=== PATIENT | female | born 1960 | race Two or more races ===

== ENCOUNTER 2020-03-08 10:00 | Inpatient (IN) | payer OTHER ==
[~2020-03-08] VITALS: Ht 154.9 cm; Wt 57.6 kg
[2020-03-08] MEDS ORDERED: NORVASC5 MG PO (12:09)
[2020-03-08] MEDS ORDERED: MONTELUKAST SOD10 MG PO (12:09)
[2020-03-08] MEDS ORDERED: ENALAPRIL MALEA20 MG PO (12:09)
[2020-03-08] MEDS ORDERED: HYDROCHLOROTHIA25 MG PO (12:10)
[2020-03-08] MEDS ORDERED: LIPITOR80 MG PO (12:10)
[2020-03-08] MEDS ORDERED: BREO ELLIPTA 21 EACH IH (12:10)
[2020-03-08] MEDS ORDERED: ZETIA10 MG PO (12:10)
== END 2020-03-18 17:59 | disposition home or self-care (01) | DRG 331 ==
LOC: O/R 03-15 06:38 → SURH 03-15 06:38 → OB/GYN 03-15 07:00 → SURH 03-15 13:31
PROVIDERS: ADMIT Colon & Rectal Surgery; ATTEND Colon & Rectal Surgery
PROC: 0DTN4ZZ Resection of Sigmoid Colon, Percutaneous Endoscopic Approach (ICD-10-PCS; principal; 2020-03-15 07:00)
DX: K57.32 Diverticulitis of large intestine without perforation or abscess without bleeding (principal); I10 Essential (primary) hypertension; Z20.828 Contact with and (suspected) exposure to other viral communicable diseases

== ENCOUNTER 2021-07-14 07:05 | Day surgery (SDC) | payer OTHER ==
[~2021-07-14 07:05] MED LIST: BREO ELLIPTA 21 EACH IH; ENALAPRIL MALEA20 MG PO; HYDROCHLOROTHIA25 MG PO; LIPITOR80 MG PO; MONTELUKAST SOD10 MG PO; NORVASC5 MG PO; ZETIA10 MG PO
== END 2021-07-14 13:00 | disposition home or self-care (01) ==
LOC: AMB-ENDOS 07:05
PROVIDERS: ATTEND Colon & Rectal Surgery
DX: K57.32 Diverticulitis of large intestine without perforation or abscess without bleeding (principal); K64.0 First degree hemorrhoids